=== PATIENT | male | born 1955 | race Caucasian/White ===

== ENCOUNTER 2016-10-13 04:24 | Emergency (ER) | payer OTHER ==
[~2016-10-13] VITALS: Ht 167.6 cm; Wt 68.0 kg
[2016-10-13 04:31] VITALS: Ht 167.6 cm; Wt 68.0 kg
[2016-10-13] MEDS ORDERED: ONDANSETRON (ODT) 4 MG TAB ODT STA (04:45)
[2016-10-13] MEDS ORDERED: ELIM TOP (04:52)
[2016-10-13] MEDS ORDERED: PRED20TA PO (04:52)
[2016-10-13] MEDS ORDERED: LANT3I SC (04:52)
[2016-10-13] MEDS ORDERED: HYDR-906 PO (04:52)
[2016-10-13] MEDS ORDERED: TAMS-14 PO (04:52)
[2016-10-13] MEDS ORDERED: MUPI22OI2 TOP (04:52)
[2016-10-13] MEDS ORDERED: DEXAMETHASONE 10 MG/ML 1 ML INJ IM ONE (05:00)
[2016-10-13] MEDS ORDERED: HYDROCODONE/APAP (5/325) TAB PO ONE (05:00)
--- NOTE | 2016-10-13 05:06 | ERD ---
ER Documentation Chief Complaint Date/Time DATE: 10/13/16 TIME: 04:55 Chief Complaint states bug bites to legs, behind ears, also c/o toothache, wants med refill HPI 61-year-old male with a history of enlarged prostate, diabetes, and ongoing tooth pain, presents the emergency department complaining of multiple bug bites to his legs, behind his ears, and on his arm. Patient states the bites are 10 out of 10 constant itchy discomfort. Patient also complains of ongoing toothache which is a dull constant 4 out of 10 throbbing pain, worse when eating. Patient states he also is in need of a medication refill for Flomax and Lantus. He is not aware of his dosage for the insulin. Patient denies nausea, vomiting, abdominal pain, diarrhea, headache, blurred vision. ROS All systems reviewed and are negative except as per history of present illness. Medications Home Meds Active Scripts Hydrocodone/Acetaminophen (Glady 5-325 Tablet) 1 Each Tablet, 1 EACH PO Q6, #24 TAB Prov:LEONILA CARBALLO PA-C 10/13/16 Tamsulosin Hcl* (Flomax*) 0.4 Mg Cap.er.24h, 0.4 MG PO DAILY, #60 CAP Prov:LEONILA CARBALLO PA-C 10/13/16 Insulin Glargine* (Lantus*) 100 Unit/Ml Soln, 1 UNIT SC QHS, #1 VIAL Prov:LEONILA CARBALLO PA-C 10/13/16 Permethrin* (Elimite*) 5% Cr, 1 APPLIC TOP ONCE for 1 Day, TUB Prov:LEONILA CARBALLO PA-C 10/13/16 Mupirocin* (Bactroban*) 2% -22 Gram Oint...g., 1 APPLIC TOP BID for 7 Days, EA Prov:LEONILA CARBALLO PA-C 10/13/16 Prednisone* (Prednisone*) 20 Mg Tab, 40 MG PO DAILY for 4 Days, TAB Prov:LEONILA CARBALLO PA-C 10/13/16 Allergies Allergies: Coded Allergies: No Known Drug Allergies (Verified Allergy, Unknown, 10/13/16) PMhx/Soc History of Surgery: No Anesthesia Reaction: No Hx Neurological Disorder: No Hx Respiratory Disorders: No Hx Cardiac Disorders: No Hx Psychiatric Problems: No Hx Miscellaneous Medical Probl: Yes (diabetes, enlarged prostate) Hx Alcohol Use: Yes Hx Substance Use: No Hx Tobacco Use: Yes Smoking Status: Current some day smoker Physical Exam Vitals Vital Signs Date Time Temp Pulse Resp B/P Pulse Ox O2 Delivery O2 Flow Rate FiO2 10/13/16 04:31 98.2 105 20 128/90 98 Physical Exam Const: Well-developed, well-nourished, in no acute distress Head: Atraumatic Eyes: Normal Conjunctiva ENT: 3, bite-like lesions located posterior to the right ear with mild surrounding erythema and scab formation. Otherwise normal External Nose and Mouth. No evidence of major gingival erythema or swelling. No evidence of tonsillar swelling or erythema. Uvula midline Neck: Full range of motion..~ No meningismus. Resp: Clear to auscultation bilaterally Cardio: Regular rate and rhythm, no murmurs Abd: Soft, non tender, non distended. Normal bowel sounds Skin: Multiple bite-like lesions located along the lower extremities which have scabbed over and have surrounding erythema. No pustular drainage or major swelling. No petechiae Back: No midline or flank tenderness Ext: No cyanosis, or edema Neur: Awake and alert Psych: Normal Mood and Affect Results 24 hrs Current Medications Medications (Trade) Dose Ordered Sig/Hetal Route PRN Reason Start Time Stop Time Status Last Admin Dose Admin Dexamethasone (Decadron) 10 mg ONCE ONCE IM 10/13/16 05:00 10/13/16 05:01 Acetaminophen/ Hydrocodone Bitart (Glady (5/325)) 1 tab ONCE ONCE PO 10/13/16 05:00 10/13/16 05:01 Ondansetron HCl (Zofran Odt) 4 mg ONCE STAT ODT 10/13/16 04:45 10/13/16 04:46 DC Procedures/MDM 61-year-old male with history of diabetes, enlarged prostate, chronic tooth pain who presents with itchy rash 4 days, increased tooth pain and a request for medication refill. Vital signs reviewed. Patient afebrile, normotensive and non-hypoxic upon arrival. Physical exam consistent with multiple bite-like lesions to lower extremities and right posterior ear, consistent unspecified pediculosis. Patient will receive permethrin and steroids for symptomatic control. Patient received a refill for Flomax. Patient unable to tell me the proper dosage of Lantus insulin. Patient instructed to follow-up with primary care provider for proper dosage of refill of his insulin. Patient denies any abdominal pain, nausea, vomiting, blurred vision, headache, dysuria, hematuria. I will supply the patient with a short course of pain medication for his ongoing toothache, however instructed the patient to follow-up with his dentist as soon as possible. Patient denies any fever or chills, and there is no evidence of peritonsillar abscess. Based on patient's history of present illness and physical examination the decision was made to discharge. The patient was re-evaluated after ED treatment and stabilizing measures, and symptoms have improved. There is no evidence of life threatening injuries or illnesses at this time. On re-examination, patient resting in no distress, stable vital signs, reports feeling better and safe for discharge with outpatient follow up with PMD in 1-2 days. Patient given return precautions. Departure Diagnosis: Primary Impression: Rash Additional Impressions: Pediculosis Medication refill Toothache Condition: Good Patient Instructions: Dental Pain, Bedbug Bites Referrals: [facility] YOU HAVE RECEIVED A MEDICAL SCREENING EXAM AND THE RESULTS INDICATE THAT YOU DO NOT HAVE A CONDITION THAT REQUIRES URGENT TREATMENT IN THE EMERGENCY DEPARTMENT. FURTHER EVALUATION AND TREATMENT OF YOUR CONDITION CAN WAIT UNTIL YOU ARE SEEN IN YOUR DOCTORS OFFICE WITHIN THE NEXT 1-2 DAYS. IT IS YOUR RESPONSIBILITY TO MAKE AN APPOINTMENT FOR FOLOW-UP CARE. IF YOU HAVE A PRIMARY DOCTOR --you should call your primary doctor and schedule an appointment IF YOU DO NOT HAVE A PRIMARY DOCTOR YOU CAN CALL OUR PHYSICIAN REFERRAL HOTLINE AT IF YOU CAN NOT AFFORD TO SEE A PHYSICIAN YOU CAN CHOSE FROM THE FOLLOWING [facility] [address] [facility] [address] [facility] [facility] [address] [facility] [address] [facility] [address] [facility]. [facility]. [address] Additional Instructions: Call your primary care doctor TOMORROW for an appointment during the next 1-2 days.See the doctor sooner or return here if your condition worsens before your appointment time. LEONILA CARBALLO PA-C Oct 13, 2016 05:05
== END 2016-10-13 05:37 | disposition home or self-care (01) ==
LOC: FTE 04:24
DX: R21 Rash and other nonspecific skin eruption (principal); B85.2 Pediculosis, unspecified; E11.9 Type 2 diabetes mellitus without complications; F17.210 Nicotine dependence, cigarettes, uncomplicated; Z76.0 Encounter for issue of repeat prescription; Z79.4 Long term (current) use of insulin
CPT/HCPCS: J1100; Z7610; 96372

== ENCOUNTER 2016-10-19 16:57 | Emergency (ER) | payer OTHER ==
[~2016-10-19] VITALS: Wt 66.5 kg
[~2016-10-19 16:57] MED LIST: ELIM TOP; HYDR-906 PO; LANT3I SC; MUPI22OI2 TOP; PRED20TA PO; TAMS-14 PO
[2016-10-19] MEDS ORDERED: AMOXICILLIN/CLAV 875 MG TAB PO ONE (18:00)
--- NOTE | 2016-10-19 19:10 | RADRPT ---
PROCEDURE: XR Left Hand. CLINICAL INDICATION: Trauma due to a dog bite. Left hand pain. TECHNIQUE: Three views. Frontal lateral and oblique images of the left hand were obtained. COMPARISON: No prior studies are available for comparison. FINDINGS: There is no fracture or dislocation. The soft tissues are normal. Articular surfaces are intact. There is no lytic or blastic lesion. There is no radiopaque foreign body. IMPRESSION: 1. Unremarkable images of the left hand. 2. No radiopaque foreign body. RPTAT: QQ .Carlos Alberto Marshall MD, MD Date Time Electronically viewed and signed by .Carlos Alberto Marshall MD, on 10/19/2016 19:10 .R/
[2016-10-19] MEDS ORDERED: AMOX1TAB10 PO (19:16)
--- NOTE | 2016-10-19 19:37 | ERD ---
ER Documentation Chief Complaint Date/Time DATE: 10/19/16 TIME: 19:27 Chief Complaint possible spider bite HPI This is a 61-year-old male that presents to the ER stating that he has left hand pain after a fall that happened 2 days ago. Patient also has a dog bite to his left hand. Dog bite occurred 4-5 days ago. Patient denies any fevers or chills. He states that his hand is red and swollen. Patient had been given antibiotics however he lost them. Patient is left-hand dominant. Patient denies any numbness or tingling of his hand. ROS 12 point review of systems was done, all negative except per HPI. Medications Home Meds Active Scripts Amoxicillin/Potassium Clav (Amox-Clav 875-125 mg Tablet) 875-125 mg Tab, 1 TAB PO BID for 7 Days, #14 TAB Prov:ELVIN GOLDBERG 10/19/16 Hydrocodone/Acetaminophen ([place] 5-325 Tablet) 1 Each Tablet, 1 EACH PO Q6, #24 TAB Prov:LEONILA CARBALLO PA-C 10/13/16 Tamsulosin Hcl* (Flomax*) 0.4 Mg Cap.er.24h, 0.4 MG PO DAILY, #60 CAP Prov:LEONILA CARBALLO PA-C 10/13/16 Insulin Glargine* (Lantus*) 100 Unit/Ml Soln, 1 UNIT SC QHS, #1 VIAL Prov:LEONILA CARBALLO PA-C 10/13/16 Permethrin* (Elimite*) 5% Cr, 1 APPLIC TOP ONCE for 1 Day, TUB Prov:LEONILA CARBALLO PA-C 10/13/16 Mupirocin* (Bactroban*) 2% -22 Gram Oint...g., 1 APPLIC TOP BID for 7 Days, EA Prov:LEONILA CARBALLO PA-C 10/13/16 Prednisone* (Prednisone*) 20 Mg Tab, 40 MG PO DAILY for 4 Days, TAB Prov:LEONILA CARBALLO PA-C 10/13/16 Allergies Allergies: Coded Allergies: No Known Drug Allergies (Verified Allergy, Unknown, 10/13/16) PMhx/Soc History of Surgery: No Anesthesia Reaction: No Hx Neurological Disorder: No Hx Respiratory Disorders: No Hx Cardiac Disorders: No Hx Psychiatric Problems: No Hx Miscellaneous Medical Probl: No Hx Alcohol Use: No Hx Substance Use: No Hx Tobacco Use: No Smoking Status: Never smoker Physical Exam Vitals Vital Signs Date Time Temp Pulse Resp B/P Pulse Ox O2 Delivery O2 Flow Rate FiO2 10/19/16 17:02 97.7 109 20 147/83 99 Physical Exam GENERAL: The patient is well developed and appropriate for usual state of health , in no apparent distress. HEENT: Atraumatic. CHEST: Clear to auscultation bilaterally. There are no rales, wheezes or rhonchi. HEART: Regular rate and rhythm. No murmurs, clicks, rubs or gallops. EXTREMITIES: Left hand is without obvious asymmetry or deformity when compared to the right hand. There is a minor swelling and erythema where there is what looks like an animal bite. No nail avulsion, tissue avulsion, partial or complete amputation, subungual hematoma, bony deformity. Normal cascade of fingers. Normal flexion and extension of fingers. FDS and FDP are intact against resistance. No focal fullness, throbbing pain, swelling of fingertips. Tender to palpation to the dorsal hands where bite is. Pulses are normal with normal capillary refill. Patient has normal range of motion of the wrist no snuffbox tenderness. Patient has full range of motion of the elbow and the shoulder. NEURO: Alert and oriented. SKIN: There is no apparent rash or petechia. The skin is warm and dry. Results 24 hrs Current Medications Medications (Trade) Dose Ordered Sig/Hetal Route PRN Reason Start Time Stop Time Status Last Admin Dose Admin Amoxicillin/ Clavulanate Potassium (Augmentin) 875 mg ONCE ONCE PO 10/19/16 18:00 10/19/16 18:01 DC 10/19/16 17:53 Procedures/MDM Differential diagnosis includes but is not limited to; dog bite, infected dog bite, cellulitis, abscess, flexor tendon injury, flexor tenosynovitis, vascular injury, compartment syndrome, fracture, dislocation. This is a 61-year-old male that presents to the ER with a dog bite. Area does appear erythematous and slightly swollen he will be sent home with Augmentin, he was given the first dose of Augmentin here in the ER. Suspicion for deep space infection or abscess is low. X-ray of the hand was negative for any fractures or dislocations. Patient did not have any tenderness to the wrist elbow or shoulder. I do not believe that other x-rays were necessary as his physical examination was benign. Patient does have other areas where he may have possible bug bites versus abscesses secondary to drug use. He was seen here recently and he was given hydrocortisone cream and permethrin for possible pediculosis. Patient will be sent home with Augmentin, patient states that he has a recent tetanus shot. He needs to follow-up with his primary care doctor within 1-2 days or return to ER sooner if symptoms worsen. My medical decision making was shared with the patient he understands and agrees with plan. Departure Diagnosis: Primary Impression: Bite wound Condition: Stable Patient Instructions: Animal Bite, General Referrals: [facility] (PCP) Additional Instructions: Call your primary care doctor TOMORROW for an appointment during the next 1-2 days.See the doctor sooner or return here if your condition worsens before your appointment time. ELVIN GOLDBERG Oct 19, 2016 19:37
== END 2016-10-19 19:23 | disposition home or self-care (01) ==
LOC: E/R 16:57 → FTE 19:23
DX: S61.452A Open bite of left hand, initial encounter (principal); W54.0XXA Bitten by dog, initial encounter; Y92.9 Unspecified place or not applicable
CPT/HCPCS: 73130; Z7502; Z7610

== ENCOUNTER 2017-05-01 15:05 | Emergency (ER) | END 2017-05-01 17:25 | disposition home or self-care (01) ==